=== PATIENT | female | born 1945 | race African-American/Black ===

== ENCOUNTER 2022-06-27 17:16 | Inpatient (IN) | payer MEDICARE, MEDICAID ==
[~2022-06-27] VITALS: Ht 157.5 cm; Wt 40.8 kg
[2022-06-27] MEDS ORDERED: MORPHINE SULFATE 2 MG/ML CPJ (NOT FOR IM USE) IV ONE (19:15)
[2022-06-27 19:42] LABS: HEMATOCRIT. 28.4 % (36.0-48.0); HEMOGLOBIN. 8.7 g/dL (12.0-16.0); MEAN CORPUSCULAR HEMOGLOBIN 23.5 pg (28.0-32.0); MEAN CORPUSCULAR VOLUME 76.9 fL (81.0-99.0); MEAN PLATELET VOLUME 6.4 fl (7.4-10.4); PLATELET 493 x1000/uL (130-400); RED BLOOD CELL COUNT 3.69 mill/uL (4.2-5.4); RED CELL DISTRIBUTION WIDTH 20.1 % (11.6-14.6)
[2022-06-27 19:47] LABS: CHLORIDE 104 mEq/L (98-107)
[2022-06-27] MEDS ORDERED: MORPHINE SULFATE 2 MG/ML CPJ (NOT FOR IM USE) IV NR (21:15)
[2022-06-28 00:21] LABS: PLATELET ESTIMATE INCREASED
[2022-06-28] MEDS ORDERED: CEFTRIAXONE 1 G PREMIX 50 ML IV SCH (10:45)
[2022-06-28] MEDS ORDERED: NALOXONE HCL 0.4MG/ML VIAL IV PRN (11:00)
[2022-06-28 12:00] VITALS: BP 90/51
[2022-06-28] MEDS ORDERED: VANCOMYCIN 1,000 MG in DEXT 5% WATER 250 ML IV SCH (13:00)
[2022-06-28] MEDS: CEFTRIAXONE 1,000 MG in DEXTROSE 5% WATER 50 ML IV SCH (13:56)
[2022-06-28] MEDS: ENOXAPARIN 40MG/0.4ML SYR SUBCUT SCH (14:17)
[2022-06-28] MEDS: METRONIDAZOLE 500MG TABLET PO SCH ×2 (15:20→22:20)
[2022-06-28] MEDS: HYDROCODONE/ACETAMINOPHEN 5/325MG TABLET PO PRN (15:26)
[2022-06-28 16:00] VITALS: BP 98/51
[2022-06-28 16:56] VITALS: BP 98/45
[2022-06-28] MEDS ORDERED: INFLUENZA VACCINE 05/PF 0.5 ML SYRINGE IM ONE (18:30)
[2022-06-28] MEDS ORDERED: PNEUMOCOCCAL 23-VAL P-SAC VAC 0.5 ML IM ONE (18:30)
[2022-06-28 20:00] VITALS: BP 114/57
[2022-06-29] VITALS: BP 91/53
[2022-06-29 04:00] VITALS: BP 99/64
[2022-06-29] MEDS ORDERED: VANCOMYCIN 500MG PREMIX 100 ML IV SCH (04:00)
[2022-06-29] MEDS: METRONIDAZOLE 500MG TABLET PO SCH ×3 (06:18→21:39)
[2022-06-29 08:00] VITALS: BP 97/57
[2022-06-29] MEDS: PANTOPRAZOLE SODIUM 40 MG/VIAL IV SCH (08:29)
[2022-06-29 12:00] VITALS: BP 97/58
[2022-06-29] MEDS: CEFTRIAXONE 1,000 MG in DEXTROSE 5% WATER 50 ML IV SCH (13:37)
[2022-06-29] MEDS: ENOXAPARIN 40MG/0.4ML SYR SUBCUT SCH (13:44)
[2022-06-29] MEDS: HYDROCODONE/ACETAMINOPHEN 5/325MG TABLET PO PRN ×2 (14:01→18:24)
[2022-06-29 16:00] VITALS: BP 104/52
[2022-06-29] MEDS: VANCOMYCIN 500MG PREMIX 100 ML IV SCH (18:24)
[2022-06-29 20:00] VITALS: BP 99/54
[2022-06-30] VITALS: BP 107/59
[2022-06-30 04:00] VITALS: BP 114/68
[2022-06-30] MEDS: METRONIDAZOLE 500MG TABLET PO SCH ×3 (05:12→20:28)
[2022-06-30] MEDS: VANCOMYCIN 500MG PREMIX 100 ML IV SCH ×2 (05:12→18:30)
[2022-06-30] MEDS: HYDROCODONE/ACETAMINOPHEN 5/325MG TABLET PO PRN ×2 (05:12→20:55)
[2022-06-30 08:00] VITALS: BP 93/51
[2022-06-30] MEDS: PANTOPRAZOLE SODIUM 40 MG/VIAL IV SCH (09:27)
[2022-06-30 12:00] VITALS: BP 93/48
[2022-06-30] MEDS: CEFTRIAXONE 1,000 MG in DEXTROSE 5% WATER 50 ML IV SCH (12:29)
[2022-06-30] MEDS: ENOXAPARIN 40MG/0.4ML SYR SUBCUT SCH (12:29)
[2022-07-01 01:54] LABS: CHLORIDE 102 mEq/L (98-107)
[2022-07-01 02:01] LABS: VANCOMYCIN TROUGH 12.4 ug/mL (5.0-10.0)
[2022-07-01 02:13] LABS: BASOPHILS % 0.5 % (0.0-2.0); EOSINOPHILS % 1.8 % (0.0-5.0); HEMATOCRIT. 27.1 % (36.0-48.0); HEMOGLOBIN. 8.5 g/dL (12.0-16.0); LYMPHOCYTES % 9.7 % (20.0-50.0); MEAN CORPUSCULAR HEMOGLOBIN 23.7 pg (28.0-32.0); MEAN CORPUSCULAR VOLUME 75.5 fL (81.0-99.0); MEAN PLATELET VOLUME 7.1 fl (7.4-10.4); MONOCYTES % 12.7 % (2.0-8.0); NEUTROPHILS % 75.3 % (40.0-76.0); PLATELET 458 x1000/uL (130-400); RED BLOOD CELL COUNT 3.59 mill/uL (4.2-5.4); RED CELL DISTRIBUTION WIDTH 19.5 % (11.6-14.6)
[2022-07-01 04:00] VITALS: BP 90/52
[2022-07-01] MEDS: VANCOMYCIN 500MG PREMIX 100 ML IV SCH (05:20)
[2022-07-01] MEDS: METRONIDAZOLE 500MG TABLET PO SCH ×3 (05:20→21:28)
[2022-07-01 08:00] VITALS: BP 102/55
[2022-07-01] MEDS: ENOXAPARIN 30MG/0.3ML SYR SUBCUT SCH (10:24)
[2022-07-01] MEDS: PANTOPRAZOLE SODIUM 40 MG/VIAL IV SCH (10:25)
[2022-07-01] MEDS: MULTIVITAMINS,THER W-MINERALS TABLET PO SCH (10:25)
[2022-07-01 12:00] VITALS: BP 81/42
[2022-07-01] MEDS: CEFTRIAXONE 1,000 MG in DEXTROSE 5% WATER 50 ML IV SCH (12:47)
[2022-07-01 16:00] VITALS: BP 101/56
[2022-07-01] MEDS: VANCOMYCIN 750MG PREMIX 150 ML IV SCH (18:15)
[2022-07-01 20:00] VITALS: BP 112/52
[2022-07-01] MEDS: HYDROCODONE/ACETAMINOPHEN 5/325MG TABLET PO PRN (21:29)
[2022-07-02] VITALS: BP 118/60
[2022-07-02 04:00] VITALS: BP 112/60
[2022-07-02] MEDS: METRONIDAZOLE 500MG TABLET PO SCH ×3 (05:57→22:40)
[2022-07-02] MEDS: VANCOMYCIN 750MG PREMIX 150 ML IV SCH ×2 (05:58→18:00)
[2022-07-02] MEDS: HYDROCODONE/ACETAMINOPHEN 5/325MG TABLET PO PRN ×4 (06:07→22:41)
[2022-07-02 08:00] VITALS: BP 98/52
[2022-07-02] MEDS: FAMOTIDINE 20MG TABLET PO SCH (11:19)
[2022-07-02] MEDS: MULTIVITAMINS,THER W-MINERALS TABLET PO SCH (11:19)
[2022-07-02] MEDS: ENOXAPARIN 30MG/0.3ML SYR SUBCUT SCH (11:20)
[2022-07-02 12:00] VITALS: BP 102/49
[2022-07-02] MEDS: CEFTRIAXONE 1,000 MG in DEXTROSE 5% WATER 50 ML IV SCH (13:00)
[2022-07-02 16:00] VITALS: BP 96/54
[2022-07-02 20:00] VITALS: BP 90/50
[2022-07-03] VITALS: BP 99/58
[2022-07-03 04:00] VITALS: BP 99/60
[2022-07-03] MEDS: VANCOMYCIN 750MG PREMIX 150 ML IV SCH (05:53)
[2022-07-03] MEDS: METRONIDAZOLE 500MG TABLET PO SCH ×3 (05:55→22:19)
[2022-07-03 08:00] VITALS: BP 105/64
[2022-07-03] MEDS: HYDROCODONE/ACETAMINOPHEN 5/325MG TABLET PO PRN (08:49)
[2022-07-03] MEDS: MULTIVITAMINS,THER W-MINERALS TABLET PO SCH (08:50)
[2022-07-03] MEDS: ENOXAPARIN 30MG/0.3ML SYR SUBCUT SCH (08:50)
[2022-07-03] MEDS: FAMOTIDINE 20MG TABLET PO SCH (08:50)
[2022-07-03 12:00] VITALS: BP 100/57
[2022-07-03] MEDS: LEVOFLOXACIN 500MG TABLET PO SCH (13:22)
[2022-07-03 16:00] VITALS: BP 112/76
[2022-07-03] MEDS: SULFAMETHOXAZOLE/TRIMETHOPRIM 800/160MG TABLET PO SCH (22:19)
[2022-07-04] VITALS (9 sets, daily range): BP systolic 18–103; BP diastolic 49–98
[2022-07-04] MEDS: RISPERIDONE 1MG TABLET PO SCH ×3 (06:31→21:23)
[2022-07-04] MEDS: METRONIDAZOLE 500MG TABLET PO SCH ×3 (06:31→21:22)
[2022-07-04] MEDS: FAMOTIDINE 20MG TABLET PO SCH (11:00)
[2022-07-04] MEDS: MULTIVITAMINS,THER W-MINERALS TABLET PO SCH (11:00)
[2022-07-04] MEDS: SULFAMETHOXAZOLE/TRIMETHOPRIM 800/160MG TABLET PO SCH ×2 (11:00→21:23)
[2022-07-04] MEDS: ENOXAPARIN 30MG/0.3ML SYR SUBCUT SCH (11:01)
[2022-07-04] MEDS: LEVOFLOXACIN 500MG TABLET PO SCH (11:04)
[2022-07-04] MEDS: HYDROCODONE/ACETAMINOPHEN 5/325MG TABLET PO PRN ×2 (14:40→18:40)
== END 2022-07-04 22:10 | DRG 872 ==
LOC: ER 17:16 → 6EST 06-28 00:22 → EDBD 06-28 00:22 → ENRESERV 06-28 06:18 → CANRESERV 06-28 06:18 → ENRESERV 06-28 08:04
PROVIDERS: ADMIT Internal Medicine; ATTEND Internal Medicine
DX: A41.9 Sepsis, unspecified organism (principal); L02.31 Cutaneous abscess of buttock; E44.0 Moderate protein-calorie malnutrition; Z68.1 Body mass index [BMI] 19.9 or less, adult; D50.9 Iron deficiency anemia, unspecified; K62.89 Other specified diseases of anus and rectum; I95.9 Hypotension, unspecified; M25.552 Pain in left hip; Z86.718 Personal history of other venous thrombosis and embolism; W06.XXXA Fall from bed, initial encounter; Y93.89 Activity, other specified; Y92.89 Other specified places as the place of occurrence of the external cause; Y99.8 Other external cause status
CPT/HCPCS: 36415; 71045; 72192; 73502; 80048; 80053; 80202; 85025; 86850; 86900; 93005; 93970; 97166; 99291; A6261; C9113; J0696; J1650; J2270; J3370; J7060